=== PATIENT | female | born 1990 | race Caucasian/White ===

== ENCOUNTER 2018-11-27 07:02 | Emergency (ER) | payer OTHER ==
[~2018-11-27] VITALS: Ht 157.5 cm; Wt 65.0 kg
[2018-11-27 07:03] VITALS: BP 131/58; PULSE 100; RESP 18; Ht 157.5 cm; Wt 65.0 kg
[2018-11-27] MEDS ORDERED: NAPR-985 PO (08:50)
[2018-11-27] MEDS ORDERED: ONDA4TAB14 PO (08:50)
[2018-11-27] MEDS ORDERED: HYDR-4011 PO (08:50)
--- NOTE | 2018-11-27 09:14 | ERD ---
ER Documentation Chief Complaint Chief Complaint lower abdominal cramping/ nausea started this morning HPI 28-year-old female presenting with lower abdominal pain. States she felt nauseous this morning. Denies any changes in urination or bowel movement. Denies fever. Has not taken medications for symptoms. In August 2018 patient had abdominal pain and had a CT. There is questionable findings about appendicitis but patient did not have surgical intervention. Medical history is depression anxiety. [facility] November 14, 2018. History denies. Surgical history denies ROS All systems reviewed and are negative except as per history of present illness. Medications Home Meds Active Scripts Naproxen* (Naprosyn*) 500 Mg Tablet, 500 MG PO BID PRN for PAIN AND/OR INFLAMMATION, #30 TAB Prov:CORINE AGUILLON PA-C 11/27/18 Ondansetron (Ondansetron Odt) 4 Mg Tab.rapdis, 4 MG PO Q6H PRN for NAUSEA AND/OR VOMITING, #10 TAB Prov:CORINE AGUILLON PA-C 11/27/18 Hydrocodone/Acetaminophen ([place] 5-325 Tablet) 1 Each Tablet, 1 TAB PO Q6H PRN for PAIN, #7 TAB Prov:CORINE AGUILLON PA-C 11/27/18 Allergies Allergies: Coded Allergies: Penicillins (Verified Allergy, Unknown, 11/27/18) PMhx/Soc Medical and Surgical Hx: pt denies Medical Hx, pt denies Surgical Hx Hx Alcohol Use: No Hx Substance Use: No Hx Tobacco Use: No FmHx Family History: No diabetes, No coronary disease, No other Physical Exam Vitals Vital Signs Date Temp Pulse Resp B/P (MAP) Pulse Ox O2 O2 Flow FiO2 Time Delivery Rate 11/27/18 98.0 100 18 131/58 95 07:03 (82) Physical Exam GENERAL: The patient is well-appearing, well-nourished, in no acute distress HEENT: Atraumatic. Conjunctivae are pink. Pupils equal, round, and reactive to light. There is no scleral icterus. Tympanic membranes clear bilaterally. Or opharynx clear. NECK: C-spine is soft and supple. There is no meningismus. There is no cervical lymphadenopathy. CHEST: Clear to auscultation bilaterally. There are no rales, wheezes or rhonchi. HEART: Regular rate and rhythm. No murmurs, clicks, rubs or gallops. ABDOMEN:Soft, nondistended. Good bowel sounds. No rebound or guarding. No gross peritonitis. No gross organomegaly or masses. Mild tenderness palpation over suprapubic region but not lateralized to the right or left lower quadrant. Result Diagram: 11/27/18 0748 11/27/18 0748 Results 24 hrs Laboratory Tests Test 11/27/18 07:48 11/27/18 07:50 White Blood Count 22.9 10^3/ul Red Blood Count 5.76 10^6/ul Hemoglobin 12.0 g/dl Hematocrit 36.2 % Mean Corpuscular Volume 62.8 fl Mean Corpuscular Hemoglobin 20.8 pg Mean Corpuscular Hemoglobin Concent 33.1 g/dl Red Cell Distribution Width 14.6 % Platelet Count 357 10^3/UL Mean Platelet Volume 11.3 fl Immature Granulocytes % 0.400 % Neutrophils % 86.3 % Lymphocytes % 7.3 % Monocytes % 5.0 % Eosinophils % 0.5 % Basophils % 0.5 % Nucleated Red Blood Cells % 0.0 /100WBC Immature Granulocytes # 0.100 10^3/ul Neutrophils # 19.8 10^3/ul Lymphocytes # 1.7 10^3/ul Monocytes # 1.1 10^3/ul Eosinophils # 0.1 10^3/ul Basophils # 0.1 10^3/ul Nucleated Red Blood Cells # 0.0 10^3/ul Urine Color YELLOW Urine Clarity SLIGHTLY CLOUDY Urine pH 5.0 Urine Specific [place] 1.023 Urine Ketones NEGATIVE mg/dL Urine Nitrite NEGATIVE mg/dL Urine Bilirubin NEGATIVE mg/dL Urine Urobilinogen NEGATIVE mg/dL Urine Leukocyte Esterase TRACE Tristen/ul Urine Microscopic RBC 9 /HPF Urine Microscopic WBC 4 /HPF Urine Squamous Epithelial Cells FEW /HPF Urine Bacteria FEW /HPF Urine Mucus FEW /HPF Urine Hemoglobin 1+ mg/dL Urine Glucose NEGATIVE mg/dL Urine Total Protein NEGATIVE mg/dl Sodium Level 139 mmol/L Potassium Level 3.8 mmol/L Chloride Level 101 mmol/L Carbon Dioxide Level 25 mmol/L Anion Gap 13 Blood Urea Nitrogen 12 mg/dl Creatinine 0.78 mg/dl Est Glomerular Filtrat Rate mL/min > 60 mL/min Glucose Level 98 mg/dl Calcium Level 9.5 mg/dl Total Bilirubin 0.4 mg/dl Direct Bilirubin 0.00 mg/dl Indirect Bilirubin 0.4 mg/dl Aspartate Amino Transf (AST/SGOT) 19 IU/L Alanine Aminotransferase (ALT/SGPT) 12 IU/L Alkaline Phosphatase 69 IU/L Total Protein 8.1 g/dl Albumin 4.6 g/dl Globulin 3.50 g/dl Albumin/Globulin Ratio 1.31 Lipase 74 U/L POC Beta HCG, Qualitative NEGATIVE Procedures/MDM DIAGNOSTIC IMAGING REPORT Patient: SARAI COBB : 1990 Age: 28 Sex: F MR #: [id number] DOS: 11/27/18 0729 Ordering MD: JENNIFER AGUILLON PA-C Location: [facility] Room/Bed: PROCEDURE: US Pelvis. CLINICAL INDICATION: Pelvic pain. TECHNIQUE: Sonographic evaluation of the pelvis was performed utilizing both transabdominal and transvaginal technique.Curved array transabdominal transducer technique as well as a high frequency endovaginal probe was utilized. Images were reviewed on the high-resolution PACS workstation. COMPARISON: No prior studies are available for comparison. FINDINGS: The uterus is normal in size, echogenicity, and morphology and measures 6.8 x 2.9 x 3.4 cm. The endometrium is normal measuring 4.5 mm. The right ovary measures 2.2 cm in length with a 1.5 cm cyst. The left ovary measures 2.4 cm in length. The ovaries are symmetric in size, echogenicity, flow, and morphology. . There are no adnexal masses. There is trace free fluid in the cul-de-sac of the pelvis.. IMPRESSION: 1. Unremarkable ultrasound of the pelvis. MDM: 28-year-old female presenting with abdominal pain and cramping. Patient states she had a long history of similar cramping. Patient does have an elevated white count however exam is non-concerning and I feel patient would benefit from a close follow-up in 8-12 hours. I discussed this extensively with patient and we decided since patient received a CT scan in August and exam is borderline the patient should return in 12 hours for abdominal recheck. She was told to return sooner if symptoms change or worsen. I have low suspicion for urinary tract infection or pyelonephritis patient's urine is within normal limits. I have low suspicion for choledocholithiasis, cholecystitis, cholangitis or pancreatitis. Patient did not have epigastric pain. I have low suspicion for urinary tract infection as patient's urine is within normal limits. She is discharged with strict ER precautions and recommended to return for close follow-up. All questions answered at discharge Departure Diagnosis: Primary Impression: Abdominal pain Condition: Stable Patient Instructions: Abdominal Pain Referrals: [facility] YOU HAVE RECEIVED A MEDICAL SCREENING EXAM AND THE RESULTS INDICATE THAT YOU DO NOT HAVE A CONDITION THAT REQUIRES URGENT TREATMENT IN THE EMERGENCY DEPARTMENT. FURTHER EVALUATION AND TREATMENT OF YOUR CONDITION CAN WAIT UNTIL YOU ARE SEEN IN YOUR DOCTORS OFFICE WITHIN THE NEXT 1-2 DAYS. IT IS YOUR RESPONSIBILITY TO MAKE AN APPOINTMENT FOR FOLOW-UP CARE. IF YOU HAVE A PRIMARY DOCTOR --you should call your primary doctor and schedule an appointment IF YOU DO NOT HAVE A PRIMARY DOCTOR YOU CAN CALL OUR PHYSICIAN REFERRAL HOTLINE AT IF YOU CAN NOT AFFORD TO SEE A PHYSICIAN YOU CAN CHOSE FROM THE FOLLOWING [facility] [address] [facility] [address] [facility] [address] [facility] [address] [facility] [address] [facility]. [facility]. [address] Additional Instructions: Call your primary care doctor TOMORROW for an appointment during the next 1-2 days.See the doctor sooner or return here if your condition worsens before your appointment time. CORINE AGUILLON PA-C Nov 27, 2018 09:14
== END 2018-11-27 09:13 | disposition home or self-care (01) ==
LOC: FTE 07:02
DX: R10.9 Unspecified abdominal pain (principal); R10.2 Pelvic and perineal pain
CPT/HCPCS: 36415; 76830; 76856; 80053; 81001; 81025; 83690; 85025; Z7502

== ENCOUNTER 2018-12-20 06:25 | Inpatient (IN) | payer OTHER ==
[~2018-12-20] VITALS: Ht 157.5 cm; Wt 66.2 kg
[2018-12-20] VITALS (20 sets, daily range): BP systolic 96–135; BP diastolic 29–75; PULSE 69–108; RESP 14–29; Ht 157.5 cm; Wt 66.2 kg
[~2018-12-20 06:25] MED LIST: HYDR-4011 PO; NAPR-985 PO; ONDA4TAB14 PO
[2018-12-20] MEDS ORDERED: KETOROLAC 30 MG INJ IV STA (06:47)
[2018-12-20] MEDS ORDERED: SOD CHLORIDE 0.9% 500 ML IV STA (06:47)
[2018-12-20] MEDS ORDERED: CEFAZOLIN 1 GM INJ ONE (07:00)
[2018-12-20] MEDS ORDERED: HYDROmorphONE 0.5 MG/0.5 ML SYG IV STA (08:37)
--- NOTE | 2018-12-20 08:44 | ERD ---
ER Documentation Chief Complaint Chief Complaint mid abdominal pain , nausea since 03:45 am HPI 28-year-old female presents the emergency department complaining of abdominal pain. Patient states that beginning at approximately 3:00 this morning she began having a nonspecific lower abdominal pain. She had nausea but no vomiting. She had no diarrhea. She reports no urinary or gynecologic symptoms. She currently reports the pain is a 10 out of 10. She had similar type episodes with no significant diagnosis reported. ROS All systems reviewed and are negative except as per history of present illness. Medications Home Meds Active Scripts Naproxen* (Naprosyn*) 500 Mg Tablet, 500 MG PO BID PRN for PAIN AND/OR INFLAMMATION, #30 TAB Prov:CORINE AGUILLON PA-C 11/27/18 Ondansetron (Ondansetron Odt) 4 Mg Tab.rapdis, 4 MG PO Q6H PRN for NAUSEA AND/OR VOMITING, #10 TAB Prov:CORINE AGUILLON PA-C 11/27/18 Hydrocodone/Acetaminophen ([place] 5-325 Tablet) 1 Each Tablet, 1 TAB PO Q6H PRN for PAIN, #7 TAB Prov:OCRINE AGUILLON PA-C 11/27/18 Allergies Allergies: Coded Allergies: Penicillins (Verified Allergy, Unknown, 11/27/18) PMhx/Soc Medical and Surgical Hx: pt denies Medical Hx, pt denies Surgical Hx Hx Alcohol Use: No Hx Substance Use: No Hx Tobacco Use: No Physical Exam Vitals Vital Signs Date Temp Pulse Resp B/P (MAP) Pulse Ox O2 O2 Flow FiO2 Time Delivery Rate 12/20/18 97.7 92 18 122/57 97 06:28 (78) Physical Exam GENERAL: The patient is well developed and appropriate for usual state of health in no apparent distress HEENT: Pupils equal, round, and reactive to light. EOMI. There is no scleral i cterus. NECK: C-spine is soft and supple, there is no meningismus. There is no cervical lymphadenopathy. LUNGS: Clear to auscultation bilaterally. There are no rales, wheezes or rhonchi. HEART: Regular rate and rhythm, no murmurs, clicks, rubs or gallops. ABDOMEN: Soft, nondistended. Mild lower quadrant tenderness bilaterally. No rebound or guarding. No CVA tenderness. EXTREMITIES: There is no peripheral cyanosis or edema. No focal swelling or erythema. NEURO: The patient moves all four extremities with 5/5 strength. Cranial nerves II - XII are intact. Normal gait. Alert and oriented SKIN: There is no apparent rash or petechiae. HEME/LYMPHATIC: There is no evidence of excessive bruising or lymphedema. PSYCHIATRIC: The patient does not appear anxious or depressed. Result Diagram: 12/20/18 0659 12/20/18 0659 Results 24 hrs Laboratory Tests Test 12/20/18 06:59 12/20/18 07:31 White Blood Count 20.3 10^3/ul Red Blood Count 5.53 10^6/ul Hemoglobin 11.5 g/dl Hematocrit 35.2 % Mean Corpuscular Volume 63.7 fl Mean Corpuscular Hemoglobin 20.8 pg Mean Corpuscular Hemoglobin Concent 32.7 g/dl Red Cell Distribution Width 14.3 % Platelet Count 378 10^3/UL Mean Platelet Volume 11.2 fl Immature Granulocytes % 0.400 % Neutrophils % 85.4 % Lymphocytes % 9.4 % Monocytes % 3.8 % Eosinophils % 0.4 % Basophils % 0.6 % Nucleated Red Blood Cells % 0.0 /100WBC Immature Granulocytes # 0.090 10^3/ul Neutrophils # 17.3 10^3/ul Lymphocytes # 1.9 10^3/ul Monocytes # 0.8 10^3/ul Eosinophils # 0.1 10^3/ul Basophils # 0.1 10^3/ul Nucleated Red Blood Cells # 0.0 10^3/ul Urine Color YELLOW Urine Clarity SLIGHTLY CLOUDY Urine pH 6.0 Urine Specific [place] 1.020 Urine Ketones NEGATIVE mg/dL Urine Nitrite NEGATIVE mg/dL Urine Bilirubin NEGATIVE mg/dL Urine Urobilinogen NEGATIVE mg/dL Urine Leukocyte Esterase TRACE Tristen/ul Urine Microscopic RBC 4 /HPF Urine Microscopic WBC 2 /HPF Urine Squamous Epithelial Cells FEW /HPF Urine Mucus FEW /HPF Urine Hemoglobin 1+ mg/dL Urine Glucose NEGATIVE mg/dL Urine Total Protein NEGATIVE mg/dl Sodium Level 141 mmol/L Potassium Level 4.4 mmol/L Chloride Level 106 mmol/L Carbon Dioxide Level 26 mmol/L Anion Gap 9 Blood Urea Nitrogen 12 mg/dl Creatinine 0.74 mg/dl Est Glomerular Filtrat Rate mL/min > 60 mL/min Glucose Level 123 mg/dl Calcium Level 8.8 mg/dl Total Bilirubin 0.3 mg/dl Direct Bilirubin 0.00 mg/dl Indirect Bilirubin 0.3 mg/dl Aspartate Amino Transf (AST/SGOT) 25 IU/L Alanine Aminotransferase (ALT/SGPT) 15 IU/L Alkaline Phosphatase 78 IU/L Total Protein 8.0 g/dl Albumin 4.5 g/dl Globulin 3.50 g/dl Albumin/Globulin Ratio 1.28 Lipase 59 U/L Serum HCG, Qualitative NEGATIVE POC Beta HCG, Qualitative NEGATIVE Current Medications Medications Dose Sig/[place] Start Time Status Last (Trade) Ordered Route PRN Stop Time Admin Dose Reason Admin Sodium 500 ml @ Q1H STAT 12/20/18 DC 12/20/18 Chloride 500 mls/hr IV 06:47 07:05 12/20/18 07:46 Ketorolac 30 mg ONCE STAT 12/20/18 DC 12/20/18 Tromethamine IV 06:47 07:39 (Toradol) 12/20/18 06:48 0.5 mg ONCE STAT 12/20/18 DC Hydromorphone IV 08:37 HCl 12/20/18 08:38 (Dilaudid) 150 ml @ ONCE ONCE 12/20/18 Levofloxacin/ 100 mls/hr IVPB 09:00 Dextrose 12/20/18 10:29 Procedures/MDM Patient was taken to a room, seen and evaluated. Comfort measures were initiated. Diagnostic tests were ordered and reviewed. RADIOLOGY: Reviewed with the radiologist CONSULTATION: Hospitalist was notified for admission. Dr. Aguilar was notified in surgical consultation REEVALUATION: Patient required ongoing pain medication as well as antibiotics and fluids. She remained without obvious peritoneal findings. MEDICAL DECISION MAKING: Patient presents with abdominal pain of uncertain etiology. Differential diagnosis considered includes appendicitis, diverticulitis, cholecystitis and other intra-abdominal medical and surgical concerns. I have reviewed the patients lab studies and imaging as well as multiple examinations of the abdomen. Initial diagnostic tests are concerning for appendicitis. Patient will be admitted for IV antibiotics, surgical consultation and fluids. Departure Diagnosis: Primary Impression: Appendicitis Condition: EVERARDO Davalos December 20, 2018 08:44
[2018-12-20] MEDS ORDERED: LEVOFLOXACIN 750MG/D5W (PMX) 150 ML IVPB ONE (09:00)
[2018-12-20] MEDS ORDERED: morphine 2 MG INJ IV PRN (10:00)
[2018-12-20] MEDS ORDERED: NACL 0.9% 3 ML SYG IV SCH (10:00)
[2018-12-20] MEDS ORDERED: ACETAMINOPHEN 325 MG TAB PO PRN ×2 (10:00→17:00)
[2018-12-20] MEDS ORDERED: ONDANSETRON 4 MG INJ IV PRN ×2 (10:00→17:30)
[2018-12-20] MEDS ORDERED: DOCUSATE SODIUM 100 MG CAP PO PRN (10:00)
--- NOTE | 2018-12-20 10:03 | HP ---
Date/Time of Note Date/Time of Note DATE: 12/20/18 TIME: 09:59 Assessment/Plan VTE Prophylaxis Pharmacological prophylaxis: NA/contraindicated Pharm contraindication: low risk/ambulating Lines/Catheters IV [facility] Saline Lock Assessment/Plan Hospital Course SUBJECTIVE: No acute distress. Currently no abdominal pain, diarrhea, nausea or any GI symptoms. OBJECTIVE: Vital signs-see below PHYSICAL EXAM: Constitutional: Adequately built,not in acute distress. HEENT: Head atraumatic and normocephalic. Eyes: Extraocular muscles intact. Anicteric sclerae. Pupils equal bilaterally, reactive to light. NECK: Supple without lymph node. CHEST: Clear and good breath sounds equally. No wheezing. No rhonchi. HEART: S1, S2. Regular rate and rhythm. ABDOMEN: +Tender periumbilical area. no rebound tenderness. Bowel sounds were present. EXTREMITIES: No cyanosis, clubbing or edema. NEUROLOGIC: Alert and oriented x3. No focal deficit. No sensory deficit. PSYCHOSOCIAL: No signs of depression. INTEGUMENTARY: No open wounds. ASSESSMENT AND PLAN: 28 yo F w/no significant pmh admitted w/ abd pain found to have acute appendicitis.. Acute appendicitis -Surgical eval -N.p.o., IV fluids, IV antimicrobial (Cipro/Flagyl in light of penicillin allergy), PRN antiemetics Microcytic anemia -Obtain iron panel and treat accordingly. DVT prophylaxis: SCDs Rest of the management depend on hospital course. Approximately 60 m spent on this history and physical. Patient was seen in collaboration with Dr. Doss. Result Diagram: 12/20/1859 12/20/18 0659 Results 24hrs Laboratory Tests Test 12/20/18 06:59 12/20/18 07:31 White Blood Count 20.3 H Red Blood Count 5.53 H Hemoglobin 11.5 L Hematocrit 35.2 L Mean Corpuscular Volume 63.7 L Mean Corpuscular Hemoglobin 20.8 L Mean Corpuscular Hemoglobin Concent 32.7 Red Cell Distribution Width 14.3 Platelet Count 378 Mean Platelet Volume 11.2 H Immature Granulocytes % 0.400 Neutrophils % 85.4 H Lymphocytes % 9.4 L Monocytes % 3.8 Eosinophils % 0.4 Basophils % 0.6 Nucleated Red Blood Cells % 0.0 Immature Granulocytes # 0.090 H Neutrophils # 17.3 H Lymphocytes # 1.9 Monocytes # 0.8 Eosinophils # 0.1 Basophils # 0.1 Nucleated Red Blood Cells # 0.0 Urine Color YELLOW Urine Clarity SLIGHTLY CLOUDY A Urine pH 6.0 Urine Specific [place] 1.020 Urine Ketones NEGATIVE Urine Nitrite NEGATIVE Urine Bilirubin NEGATIVE Urine Urobilinogen NEGATIVE Urine Leukocyte Esterase TRACE A Urine Microscopic RBC 4 Urine Microscopic WBC 2 Urine Squamous Epithelial Cells FEW Urine Mucus FEW A Urine Hemoglobin 1+ H Urine Glucose NEGATIVE Urine Total Protein NEGATIVE Sodium Level 141 Potassium Level 4.4 Chloride Level 106 Carbon Dioxide Level 26 Anion Gap 9 Blood Urea Nitrogen 12 Creatinine 0.74 Est Glomerular Filtrat Rate mL/min > 60 Glucose Level 123 Calcium Level 8.8 Total Bilirubin 0.3 Direct Bilirubin 0.00 Indirect Bilirubin 0.3 Aspartate Amino Transf (AST/SGOT) 25 Alanine Aminotransferase (ALT/SGPT) 15 Alkaline Phosphatase 78 Total Protein 8.0 Albumin 4.5 Globulin 3.50 H Albumin/Globulin Ratio 1.28 Lipase 59 Serum HCG, Qualitative NEGATIVE POC Beta HCG, Qualitative NEGATIVE HPI/ROS Admit Date/Time Admit Date/Time Hx of Present Illness 28-year-old female admitted with sudden onset of periumbilical abdominal pain associated with 2 episodes of loose stool with nausea started this morning at 4:00. Patient had similar episode earlier this year and was treated empirically with antimicrobials for possible early appendicitis. Patient denied fever, chills, vomiting, hematochezia, hematemesis, chest pain, palpitation, dizziness or other constitutional symptoms. In the emergency room, patient was noted with a white count 20,300, hemoglobin 11.5, hematocrit 35.2. Urine test negative. UA unremarkable. CAT scan of abdomen and pelvis showed appendicitis. Surgical consultation was called from the emergency room and patient was given a dose of Levaquin and Toradol/Dilaudid for pain control. ROS A 12 point review of system was assessed and is negative other than what is mentioned in HPI. PMH/Family/Social Past Medical History See HPI Medications Current Medications Levofloxacin/ Dextrose 150 ml @ 100 mls/hr ONCE ONCE IVPB Last administered on 12/20/18at 09:12; Admin Dose 100 MLS/HR; Start 12/20/18 at 09:00; Stop 9 at 10:29 Coded Allergies: Penicillins (Verified Allergy, Unknown, 11/27/18) Past Surgical History None Social History No history of alcohol, smoking or illicit drug use. Exam/Review of Systems Vital Signs Vitals Vital Signs Date Temp Pulse Resp B/P (MAP) Pulse Ox O2 O2 Flow FiO2 Time Delivery Rate 12/20/18 97.7 92 18 122/57 97 06:28 (78) CARRILLO SANDOVAL NP December 20, 2018 10:03
[2018-12-20] MEDS ORDERED: FLUO20CA38 PO (10:05)
[2018-12-20] MEDS ORDERED: NORG1TAB14 PO (10:05)
[2018-12-20] MEDS ORDERED: MULTI PO (10:06)
[2018-12-20] MEDS: SOD CHLORIDE 0.9% 1,000 ML IV SCH ×2 (11:02→18:59)
[2018-12-20] MEDS: metroNIDAZOLE 500 MG/NS (PMX) 100 ML IVPB SCH ×2 (14:03→21:05)
--- NOTE | 2018-12-20 14:58 | CONS ---
Assessment/Plan Assessment/Plan Hospital Course (Demo Recall) 1. Recurrent appendicitis: CT: dilated appendix with mild adjacent inflammation compatible with appendicitis -OR today -abx -npo -ivf 2. Abdominal pain: -as above -pain mgt 3. Leukocytosis: -as above 4. Hypochromic, microcytic anemia: No overt bleed noted -monitor and tx as needed -w/u per medical team/pcp 5. Abnormal UA: -frequent bladder emptying 6. Overweight: bmi 27 -diet and exercise optimization -encourage weight loss Thank you. Patient seen and examined in collaboration with Dr. Juan Aguilar. Consultation Date/Type/Reason Admit Date/Time Date of Consultation: December 20, 2018 Type of Consult surgical Reason for Consultation abdominal pain, appendicitis Requesting Provider: CRARILLO SANDOVAL NP Date/Time of Note DATE: 12/20/18 TIME: 14:38 Hx of Present Illness Dannielle Ruiz is a 28 yo woman with pmh appendicitis treated conservatively with antibiotic management initially in 2017, who presented to the ED with complaints of abdominal pain. Abdominal pain is predominantly periumbilical, similar to pain when she was diagnosed with appendicitis however intensified. Pain characteristic is cramping in nature. She denies associated symptoms, denies fevers, chills, congested cough, diarrhea, change in bowel or bladder habits, dysuria, vaginal discharge, trauma to the area, skin changes. Laboratory findings significant for leukocytosis. CT identifies dilated appendix with mild adjacent inflammation compatible with appendicitis. General surgery was asked to evaluate. 12 point review of systems was performed and is negative except for as stated in HPI. Past Medical History recurrent appendicitis Home Meds Reported Medications Multivitamins* (Theragran*) 1 Tab Tab, 1 TAB PO DAILY, TAB 12/20/18 Norgestimate-Ethinyl Estradiol (Sprintec 28 Day Tablet) 1 Each Tablet, 1 EACH PO DAILY, TAB 12/20/18 Fluoxetine Hcl* (Prozac*) 20 Mg Capsule, 20 MG PO DAILY, CAP 12/20/18 Discontinued Scripts Naproxen* (Naprosyn*) 500 Mg Tablet, 500 MG PO BID PRN for PAIN AND/OR INFLAMMATION, #30 TAB Prov:CORINE AGUILLON PA-C 11/27/18 Ondansetron (Ondansetron Odt) 4 Mg Tab.rapdis, 4 MG PO Q6H PRN for NAUSEA AND/OR VOMITING, #10 TAB Prov:CORINE AGUILLON PA-C 11/27/18 Hydrocodone/Acetaminophen ([place] 5-325 Tablet) 1 Each Tablet, 1 TAB PO Q6H PRN for PAIN, #7 TAB Prov:CORINE AGUILLON PA-C 11/27/18 Medications Current Medications Ciprofloxacin/ Dextrose 200 ml @ 200 mls/hr Q12 IVPB ; Start 12/21/18 at 09:00 Metronidazole 100 ml @ 100 mls/hr Q8 IVPB Last administered on 12/20/18at 14:03; Admin Dose 100 MLS/HR; Start 12/20/18 at 14:00 Sodium Chloride 1,000 ml @ 75 mls/hr [id number] IV Last administered on 12/20/18at 11:02; Admin Dose 75 MLS/HR; Start 12/20/18 at 09:56 IV Flush (NS 3 ml) 3 ml PER PROTOCOL IV ; Start 12/20/18 at 10:00 Ondansetron HCl (Zofran Inj) 4 mg Q6H PRN IV NAUSEA/VOMITING; Start 12/20/18 at 10:00 Acetaminophen (Tylenol Tab) 650 mg Q6H PRN PO .PAIN 1-3 OR TEMP; Start 12/20/18 at 10:00 Morphine Sulfate (morphine) 2 mg Q4H PRN IV .SEVERE PAIN 7-10; Start 12/20/18 at 10:00 Docusate Sodium (Colace) 100 mg Q12H PRN PO .CONSTIPATION; Start 12/20/18 at 10:00 Allergies: Coded Allergies: Penicillins (Verified Allergy, Unknown, 12/20/18) Past Surgical History Past Surgical Hx: no surgical history Family History Significant Family History: no pertinent family hx Social History Alcohol Use: none Smoking Status: Never smoker Drug Use: none Exam/Review of Systems Exam Vitals Vital Signs Date Temp Pulse Resp B/P (MAP) Pulse Ox O2 O2 Flow FiO2 Time Delivery Rate 12/20/18 98.6 100 16 118/71 99 Room Air 10:50 (87) Constitutional: alert, oriented, well developed Psych: anxiety (Minimal) Head: normocephalic, atraumatic Eyes: nl conjunctiva, EOMI, nl lids, nl sclera ENMT: nl external ears & nose, nl lips & teeth, mucosa pink and moist Neck: supple, non-tender; No jvd Respiratory: normal air movement; No congested cough Cardiovascular: regular rate and rhythm, nl pulses Gastrointestinal: soft, distended (minimal), tender (Minimal periumbilical,) Genitourinary - Female: nl external genitalia Musculoskeletal: nl extremities to inspection, nl gait and stance Extremities: normal pulses Neurological: nl mental status, nl speech, nl strength Skin: nl turgor; No rash or lesions Results Result Diagram: 12/20/18 0659 12/20/18 0659 Results 24hrs Laboratory Tests Test 12/20/18 06:59 12/20/18 07:31 White Blood Count 20.3 H Red Blood Count 5.53 H Hemoglobin 11.5 L Hematocrit 35.2 L Mean Corpuscular Volume 63.7 L Mean Corpuscular Hemoglobin 20.8 L Mean Corpuscular Hemoglobin Concent 32.7 Red Cell Distribution Width 14.3 Platelet Count 378 Mean Platelet Volume 11.2 H Immature Granulocytes % 0.400 Neutrophils % 85.4 H Lymphocytes % 9.4 L Monocytes % 3.8 Eosinophils % 0.4 Basophils % 0.6 Nucleated Red Blood Cells % 0.0 Immature Granulocytes # 0.090 H Neutrophils # 17.3 H Lymphocytes # 1.9 Monocytes # 0.8 Eosinophils # 0.1 Basophils # 0.1 Nucleated Red Blood Cells # 0.0 Urine Color YELLOW Urine Clarity SLIGHTLY CLOUDY A Urine pH 6.0 Urine Specific [place] 1.020 Urine Ketones NEGATIVE Urine Nitrite NEGATIVE Urine Bilirubin NEGATIVE Urine Urobilinogen NEGATIVE Urine Leukocyte Esterase TRACE A Urine Microscopic RBC 4 Urine Microscopic WBC 2 Urine Squamous Epithelial Cells FEW Urine Mucus FEW A Urine Hemoglobin 1+ H Urine Glucose NEGATIVE Urine Total Protein NEGATIVE Sodium Level 141 Potassium Level 4.4 Chloride Level 106 Carbon Dioxide Level 26 Anion Gap 9 Blood Urea Nitrogen 12 Creatinine 0.74 Est Glomerular Filtrat Rate mL/min > 60 Glucose Level 123 Calcium Level 8.8 Total Bilirubin 0.3 Direct Bilirubin 0.00 Indirect Bilirubin 0.3 Aspartate Amino Transf (AST/SGOT) 25 Alanine Aminotransferase (ALT/SGPT) 15 Alkaline Phosphatase 78 Total Protein 8.0 Albumin 4.5 Globulin 3.50 H Albumin/Globulin Ratio 1.28 Lipase 59 Serum HCG, Qualitative NEGATIVE POC Beta HCG, Qualitative NEGATIVE Medications Medication Current Medications Ciprofloxacin/ Dextrose 200 ml @ 200 mls/hr Q12 IVPB ; Start 12/21/18 at 09:00 Metronidazole 100 ml @ 100 mls/hr Q8 IVPB Last administered on 12/20/18at 14:03; Admin Dose 100 MLS/HR; Start 12/20/18 at 14:00 Sodium Chloride 1,000 ml @ 75 mls/hr [id number] IV Last administered on 12/20/18at 11:02; Admin Dose 75 MLS/HR; Start 12/20/18 at 09:56 IV Flush (NS 3 ml) 3 ml PER PROTOCOL IV ; Start 12/20/18 at 10:00 Ondansetron HCl (Zofran Inj) 4 mg Q6H PRN IV NAUSEA/VOMITING; Start 12/20/18 at 10:00 Acetaminophen (Tylenol Tab) 650 mg Q6H PRN PO .PAIN 1-3 OR TEMP; Start 12/20/18 at 10:00 Morphine Sulfate (morphine) 2 mg Q4H PRN IV .SEVERE PAIN 7-10; Start 12/20/18 at 10:00 Docusate Sodium (Colace) 100 mg Q12H PRN PO .CONSTIPATION; Start 12/20/18 at 10:00 TEO REED NP December 20, 2018 14:48
--- NOTE | 2018-12-20 15:22 | PREAC ---
Date/Time of Note Date/Time of Note DATE: 12/20/18 TIME: 15:21 Anesthesia Eval and Record Evaluation Time Pre-Procedure Interview DATE: 12/20/18 TIME: 15:21 Age 28 Sex female NPO: 8 hrs Preoperative diagnosis appendicitis Planned procedure laparoscopic appendectomy Past Medical History Past Medical History: Includes Psych: Depression, Anxiety Surgery & Anesthesia Issues No known issue Meds Anticoagulation: No Beta Scooby within 24 hr: No Reason Beta Scooby not given: Pt. not on B-Scooby Reported Medications Multivitamins* (Theragran*) 1 Tab Tab, 1 TAB PO DAILY, TAB 12/20/18 Norgestimate-Ethinyl Estradiol (Sprintec 28 Day Tablet) 1 Each Tablet, 1 EACH PO DAILY, TAB 12/20/18 Fluoxetine Hcl* (Prozac*) 20 Mg Capsule, 20 MG PO DAILY, CAP 12/20/18 Discontinued Scripts Naproxen* (Naprosyn*) 500 Mg Tablet, 500 MG PO BID PRN for PAIN AND/OR INFLAMMATION, #30 TAB Prov:CORINE AGUILLON PA-C 11/27/18 Ondansetron (Ondansetron Odt) 4 Mg Tab.rapdis, 4 MG PO Q6H PRN for NAUSEA AND/OR VOMITING, #10 TAB Prov:CORINE AGUILLON PA-C 11/27/18 Hydrocodone/Acetaminophen ([place] 5-325 Tablet) 1 Each Tablet, 1 TAB PO Q6H PRN for PAIN, #7 TAB Prov:CORINE AGUILLON PA-C 11/27/18 Current Medications Ciprofloxacin/ Dextrose 200 ml @ 200 mls/hr Q12 IVPB ; Start 12/21/18 at 09:00 Metronidazole 100 ml @ 100 mls/hr Q8 IVPB Last administered on 12/20/18at 14:03; Admin Dose 100 MLS/HR; Start 12/20/18 at 14:00 Sodium Chloride 1,000 ml @ 75 mls/hr [id number] IV Last administered on 12/20/18at 11:02; Admin Dose 75 MLS/HR; Start 12/20/18 at 09:56 IV Flush (NS 3 ml) 3 ml PER PROTOCOL IV ; Start 12/20/18 at 10:00 Ondansetron HCl (Zofran Inj) 4 mg Q6H PRN IV NAUSEA/VOMITING; Start 12/20/18 at 10:00 Acetaminophen (Tylenol Tab) 650 mg Q6H PRN PO .PAIN 1-3 OR TEMP; Start 12/20/18 at 10:00 Morphine Sulfate (morphine) 2 mg Q4H PRN IV .SEVERE PAIN 7-10; Start 12/20/18 at 10:00 Docusate Sodium (Colace) 100 mg Q12H PRN PO .CONSTIPATION; Start 12/20/18 at 10:00 Meds reviewed: Yes Allergies Coded Allergies: Penicillins (Verified Allergy, Unknown, 12/20/18) Allergies Reviewed: Yes Labs/Studies Labs Reviewed: Reviewed by anesthesiologist Result Diagram: 12/20/1859 12/20/18 0659 Laboratory Tests 12/20/18 06:59 test: Negative Pre-procedure Exam Last vitals Vital Signs Date Temp Pulse Resp B/P (MAP) Pulse Ox O2 O2 Flow FiO2 Time Delivery Rate 12/20/18 98.4 69 16 135/75 96 Room Air 14:30 (95) Airway: Adequate mouth opening, Adequate thyromental dist Mallampati: Mallampati I Teeth: Normal Lung: Normal Heart: Normal ASA Physical Status ASA physical status: 2 Emergency: E Planned Anesthetic General/MAC: ETT Planned Pain Management Parenteral pain med Pre-operative Attestations Prior to commencing anesthesia and surgery, the patient was re-evaluated, there was verification of: *The patient's identity *The results of appropriate recent lab work and preoperative vital signs *The above evaluation not changing prior to induction *Anesthetic plan, risk benefits, alternative and complications discussed with patient/family; questions answered; patient/family understands, accepts and wishes to proceed. ANABEL KEYES December 20, 2018 15:22
[2018-12-20] MEDS ORDERED: PROPOFOL 100 ML ONE (15:30)
[2018-12-20] MEDS ORDERED: BUPIVACAINE 0.25%/EPI (SDV) 30 ML INJ ONE (15:34)
[2018-12-20] MEDS ORDERED: ROCURONIUM 50 MG INJ ONE (15:34)
[2018-12-20] MEDS ORDERED: LIDOCAINE 2% (SDV) 5 ML INJ ONE (15:34)
[2018-12-20] MEDS ORDERED: LIDOCAINE 1% (MPF) 30 ML INJ ONE (15:34)
[2018-12-20] MEDS ORDERED: DEXAMETHASONE 4 MG/ML 5 ML INJ ONE (16:34)
[2018-12-20] MEDS ORDERED: ONDANSETRON 4 MG INJ ONE (16:34)
[2018-12-20] MEDS ORDERED: MIDAZOLAM 1 MG/ML 2 ML INJ ONE (16:38)
[2018-12-20] MEDS ORDERED: IBUPROFEN 800 MG TAB PO PRN (17:00)
[2018-12-20] MEDS ORDERED: HYDROmorphONE 0.5 MG/0.5 ML SYG IV PRN (17:00)
[2018-12-20] MEDS ORDERED: SUGAMMADEX SODIUM 200 MG/2 ML VIAL IV ONE (17:02)
--- NOTE | 2018-12-20 17:19 | PAC ---
Date/Time of Note Date/Time of Note DATE: 12/20/18 TIME: 17:19 Post-Anesthesia Notes Post-Anesthesia Note Last documented vital signs Vital Signs Date Temp Pulse Resp B/P (MAP) Pulse Ox O2 O2 Flow FiO2 Time Delivery Rate 12/20/18 98.4 69 16 135/75 96 Room Air 1719 (95) Activity: WNL Respiratory function: WNL Cardiovascular function: WNL Mental status: Baseline Pain reasonably controlled: Yes Hydration appropriate: Yes Nausea/Vomiting absent: Yes ANABEL KEYES December 20, 2018 17:19
[2018-12-20] MEDS ORDERED: hydrALAzine 20 MG INJ IV PRN (17:30)
[2018-12-20] MEDS ORDERED: MIDAZOLAM 1 MG/ML 2 ML INJ IV PRN (17:30)
[2018-12-20] MEDS ORDERED: LABETALOL HCL 20MG INJ IV PRN (17:30)
[2018-12-20] MEDS ORDERED: ALBUTEROL 0.083% (NEB) 2.5 MG/3 ML AMP HHN PRN (17:30)
[2018-12-20] MEDS ORDERED: EPHEDrine SULFATE 50 MG/5 ML SYG IV PRN (17:30)
[2018-12-20] MEDS ORDERED: DIPHENHYDRAMINE 50 MG INJ IV PRN (17:30)
[2018-12-20] MEDS ORDERED: MEPERIDINE 25 MG INJ IV PRN (17:30)
[2018-12-20] MEDS ORDERED: FENTAnyl 50 MCG/ML VIAL IV PRN ×2 (17:30)
[2018-12-20] MEDS ORDERED: KETOROLAC 30 MG INJ IV PRN (17:30)
[2018-12-20] MEDS ORDERED: METOCLOPRAMIDE 10 MG INJ IV PRN (17:30)
--- NOTE | 2018-12-20 17:35 | OPR ---
Date/Time of Note Date/Time of Note DATE: 12/20/18 TIME: 17:32 Operative Report Free Text/Dictation Preoperative Diagnosis 1. Acute appendicitis Postoperative Diagnosis 1. Acute appendicitis 2. Right lower quadrant adhesions of omentum and colon to the abdominal wall and lateral wall. Operation Performed 1. Laparoscopic appendectomy 2. [place], [id number] 3. Laparoscopic guided bilateral transversus abdominis plane block Surgeon: DEONDRE BARAHONA MD Anesthesia: general (Plus local plus regional) Anesthesiologist: Louis Clark MD Estimated Blood Loss: Less than 5 ml's Specimens: Appendix Tubes/Drains None Complications: None Pt Condition Post Procedure: stable Disposition: PACU Indications: Per consult note. Risks include but are not limited to bleeding, infection, abscess, seroma, leak, damage to intestines or any intra-abdominal/intrapelvic structures, hernia formation, chronic pain, need for re-operations or further surgeries, CA, stroke, PE, DVT, pneumonia, organ failures, or even . Procedure Note: Patient was brought into the operating room, placed supine on the operating table, SCDs were placed, left arm was tucked, all pressure points were well- padded, preoperative antibiotics administered, and after induction of anesthesia, patient was prepped and draped in usual sterile fashion, and timeout was performed. Incision was made supraumbilically and the Veress needle was safely place into the abdomen. After negative sip test, abdomen was insufflated to 15 mmHg with CO2. At this point Veress was removed and the 5 mm blunt trocar was placed into the abdomen. Laparoscopy was performed and no injuries were identified using a 5 mm 30 scope. Under direct visualization another 5 mm port was placed and left lower quadrant and 12 mm port and suprapubic region avoiding the bladder. All incision sites were injected with quarter percent Marcaine with 1% lidocaine with epi. Bilateral transversus abdominis plane block was performed under laparoscopic visualization to aid with pain control intra-and postoperatively. Patient was placed in Trendelenburg and right side up. The appendix was found to be minimally inflamed without evidence of perforation. The base was transected using [employer] DONTA white load automatic 35 mm stapler just on the cecum. The charity were fired fully. The mesoappendix was transected with another white load stapler. Hemostasis was fully obtained. The appendix was placed in an Endo Catch bag and removed through the suprapubic port site. That fascia was closed with Endo Close and 0 Vicryl in a [id number] manner avoiding the bladder. Ports and CO2 were removed under direct visualization, wounds were fully irrigated, and skin was closed in subcuticular fashion using 4-0 Monocryl. Dermabond was applied. All counts were correct and the end of the operation 2. Patient was extubated and transferred to recovery room in stable condition. DEONDRE BARAHONA MD December 20, 2018 17:34
[2018-12-20] MEDS ORDERED: KETOROLAC 30 MG INJ ONE (17:48)
[2018-12-20] MEDS: FENTAnyl 50 MCG/ML VIAL IV PRN ×4 (18:01→19:45)
[2018-12-20] MEDS: HYDROCODONE/APAP (5/325) TAB PO PRN (20:18)
[2018-12-21] MEDS: HYDROCODONE/APAP (5/325) TAB PO PRN ×2 (00:28→05:00)
[2018-12-21 02:00] VITALS: BP 120/85; PULSE 89; RESP 18
[2018-12-21] MEDS ORDERED: DIPHENHYDRAMINE 25 MG CAP PO PRN (04:30)
[2018-12-21] MEDS: metroNIDAZOLE 500 MG/NS (PMX) 100 ML IVPB SCH ×3 (05:00→22:57)
[2018-12-21 07:25] VITALS: BP 117/63; PULSE 82; RESP 16
--- NOTE | 2018-12-21 09:13 | PN ---
Date/Time of Note Date/Time of Note DATE: 12/21/18 TIME: 09:11 Assessment/Plan VTE Prophylaxis Risk score (from [facility])>0 risk: 3 SCD applied (from [facility]): Yes Pharmacological prophylaxis: heparin Lines/Catheters IV Catheter Type (from [facility]): Peripheral IV Assessment/Plan Problems: (1) Appendicitis Status: Acute Comment: Patient is now status post appendectomy but remains on antibiotics. Starting to take p.o. Discharge in line with recommendations from general surgery. Note she is having some issues with Sharon and transition this over to Percocet. Qualifiers: Appendicitis type: acute appendicitis Acute appendicitis type: with localized peritonitis Appendicitis gangrene presence: with gangrene Appendicitis perforation presence: without perforation Appendicitis abscess presence: without abscess Qualified Codes: K35.31 - Acute appendicitis with localized peritonitis and gangrene, without perforation Result Diagram: 12/21/18 0430 12/21/18 0430 Results 24hrs Laboratory Tests Test 12/21/18 04:30 White Blood Count 12.3 #H Red Blood Count 5.61 H Hemoglobin 11.6 L Hematocrit 35.2 L Mean Corpuscular Volume 62.7 L Mean Corpuscular Hemoglobin 20.7 L Mean Corpuscular Hemoglobin Concent 33.0 Red Cell Distribution Width 14.6 H Platelet Count 401 Mean Platelet Volume 11.9 H Immature Granulocytes % 0.600 H Neutrophils % 88.0 H Lymphocytes % 8.8 L Monocytes % 2.4 Eosinophils % 0.0 Basophils % 0.2 Nucleated Red Blood Cells % 0.0 Immature Granulocytes # 0.070 H Neutrophils # 10.9 H Lymphocytes # 1.1 Monocytes # 0.3 Eosinophils # 0.0 Basophils # 0.0 Nucleated Red Blood Cells # 0.0 Sodium Level 141 Potassium Level 4.2 Chloride Level 108 Carbon Dioxide Level 23 Anion Gap 10 Blood Urea Nitrogen 7 Creatinine 0.69 Est Glomerular Filtrat Rate mL/min > 60 Glucose Level 121 Calcium Level 9.0 Magnesium Level 1.9 Iron Level 44 Total Iron Binding Capacity 314 Percent Iron Saturation 14 L Total Bilirubin 0.4 Direct Bilirubin 0.00 Indirect Bilirubin 0.4 Aspartate Amino Transf (AST/SGOT) 23 Alanine Aminotransferase (ALT/SGPT) 20 Alkaline Phosphatase 82 Total Protein 8.0 Albumin 4.4 Globulin 3.60 H Albumin/Globulin Ratio 1.22 Subjective 24 Hr Interval Summary Free Text/Dictation Cheerful young woman in bed. She reports that her pain is better than when she did come into the hospital. Denies fevers chills or sweats. Constitutional: no complaints ENT: no complaints Respiratory: no complaints Cardiovascular: no complaints Gastrointestinal: pain (Markedly decreased right lower quadrant pain, eating breakfast) Genitourinary: no complaints Exam/Review of Systems Exam Vitals Vital Signs Date Temp Pulse Resp B/P (MAP) Pulse Ox O2 O2 Flow FiO2 Time Delivery Rate 12/21/18 97.9 82 16 117/63 100 Room Air 07:25 (81) Intake and Output 12/20/18 12/20/18 12/21/18 1515:00 23:00 07:00 IntakeIntake Total 150 ml 1800 ml 1500 ml OutputOutput Total 10 ml BalanceBalance 150 ml 1790 ml 1500 ml Constitutional: alert, oriented Neck: supple, non-tender Respiratory: clear to auscultation, normal air movement Cardiovascular: regular rate and rhythm, nl pulses Gastrointestinal: soft, nl liver, spleen, other (Right lower quadrant tenderness) Results Results 24hrs Laboratory Tests Test 12/21/18 04:30 White Blood Count 12.3 #H Red Blood Count 5.61 H Hemoglobin 11.6 L Hematocrit 35.2 L Mean Corpuscular Volume 62.7 L Mean Corpuscular Hemoglobin 20.7 L Mean Corpuscular Hemoglobin Concent 33.0 Red Cell Distribution Width 14.6 H Platelet Count 401 Mean Platelet Volume 11.9 H Immature Granulocytes % 0.600 H Neutrophils % 88.0 H Lymphocytes % 8.8 L Monocytes % 2.4 Eosinophils % 0.0 Basophils % 0.2 Nucleated Red Blood Cells % 0.0 Immature Granulocytes # 0.070 H Neutrophils # 10.9 H Lymphocytes # 1.1 Monocytes # 0.3 Eosinophils # 0.0 Basophils # 0.0 Nucleated Red Blood Cells # 0.0 Sodium Level 141 Potassium Level 4.2 Chloride Level 108 Carbon Dioxide Level 23 Anion Gap 10 Blood Urea Nitrogen 7 Creatinine 0.69 Est Glomerular Filtrat Rate mL/min > 60 Glucose Level 121 Calcium Level 9.0 Magnesium Level 1.9 Iron Level 44 Total Iron Binding Capacity 314 Percent Iron Saturation 14 L Total Bilirubin 0.4 Direct Bilirubin 0.00 Indirect Bilirubin 0.4 Aspartate Amino Transf (AST/SGOT) 23 Alanine Aminotransferase (ALT/SGPT) 20 Alkaline Phosphatase 82 Total Protein 8.0 Albumin 4.4 Globulin 3.60 H Albumin/Globulin Ratio 1.22 Medications Medication Current Medications Ciprofloxacin/ Dextrose 200 ml @ 200 mls/hr Q12 IVPB ; Start 12/21/18 at 09:00 Metronidazole 100 ml @ 100 mls/hr Q8 IVPB Last administered on 12/21/18at 05:00; Admin Dose 100 MLS/HR; Start 12/20/18 at 14:00 Sodium Chloride 1,000 ml @ 75 mls/hr [id number] IV Last administered on 12/20/18at 18:59; Admin Dose 75 MLS/HR; Start 12/20/18 at 09:56 IV Flush (NS 3 ml) 3 ml PER PROTOCOL IV ; Start 12/20/18 at 10:00 Ondansetron HCl (Zofran Inj) 4 mg Q6H PRN IV NAUSEA/VOMITING; Start 12/20/18 at 10:00 Acetaminophen (Tylenol Tab) 650 mg Q6H PRN PO .PAIN 1-3 OR TEMP; Start 12/20/18 at 10:00 Morphine Sulfate (morphine) 2 mg Q4H PRN IV .SEVERE PAIN 7-10; Start 12/20/18 at 10:00 Docusate Sodium (Colace) 100 mg Q12H PRN PO .CONSTIPATION; Start 12/20/18 at 10:00 Hydromorphone HCl (Dilaudid) 0.5 mg Q2H PRN IV Breakthrough PAIN; Start 12/20/18 at 17:00 Ibuprofen (Motrin) 800 mg TID PRN PO pain 4-6; Start 12/20/18 at 17:00 Acetaminophen (Tylenol Tab) 650 mg Q4H PRN PO MILD PAIN(1-3)OR ELEVATED TEMP; Start 12/20/18 at 17:00 Diphenhydramine HCl (Benadryl) 25 mg Q6H PRN PO ITCHING Last administered on 12/21/18at 05:00; Admin Dose 25 MG; Start 12/21/18 at 04:30; Stop 12/22/18 at 04:30 Oxycodone/ Acetaminophen (Percocet (5/ 325)) 1 tab Q4H PRN PO MODERATE PAIN LEVEL 4-6; Start 12/21/18 at 09:30 BRANNON KNOX MD December 21, 2018 09:13
[2018-12-21] MEDS ORDERED: DIPHENHYDRAMINE 25 MG CAP PO ONE (09:30)
[2018-12-21] MEDS: OXYCODONE/ACETAMINOPHEN (5/325) TAB PO PRN ×3 (09:42→18:09)
[2018-12-21] MEDS: SOD CHLORIDE 0.9% 1,000 ML IV SCH (09:42)
[2018-12-21] MEDS: CIPROFLOXACIN 400MG/D5W 200 ML IVPB SCH ×2 (09:49→21:49)
[2018-12-21 14:10] VITALS: BP 109/61; PULSE 90; RESP 18
--- NOTE | 2018-12-21 18:08 | PN ---
Date/Time of Note Date/Time of Note DATE: 12/21/18 TIME: 18:04 Assessment/Plan Lines/Catheters IV Catheter Type (from [facility]rs[facility]): Peripheral IV Assessment/Plan Chief Complaint/Hosp Course 1. Recurrent appendicitis s/p lap appy 12/20. s/p Abx. -diet -dc planning for tomorrow ok from surgical standpoint 2. Abdominal pain: improved -as above -pain mgt 3. Leukocytosis: improving -as above 4. Hypochromic, microcytic anemia: No overt bleed noted -monitor and tx as needed -w/u per medical team/pcp 5. Abnormal UA: -frequent bladder emptying 6. Overweight: bmi 27 -diet and exercise optimization -encourage weight loss Thank you, Subjective 24 Hr Interval Summary Pain improved. No fevers chills. No nausea vomiting. Tolerating diet. No chest pain or shortness of breath. No cough. No seizure. No blood per mouth or rectum. No dysuria. Bowel function. Labs noted. Exam/Review of Systems Vital Signs Vitals Vital Signs Date Temp Pulse Resp B/P (MAP) Pulse Ox O2 O2 Flow FiO2 Time Delivery Rate 12/22/18 97.8 87 18 107/62 97 Room Air 07:51 (77) Intake and Output 12/21/18 12/21/18 12/22/18 1515:00 23:00 07:00 IntakeIntake Total 1490 ml 965 ml 500 ml BalanceBalance 1490 ml 965 ml 500 ml Exam Free Text/Dictation Constitutional: alert, oriented, well developed Psych: NAD, pleasant Head: normocephalic, atraumatic Eyes: nl conjunctiva, EOMI, nl lids, nl sclera ENMT: nl external ears & nose, nl lips & teeth, mucosa pink and moist Neck: supple, non-tender; No jvd Respiratory: normal air movement; No congested cough Cardiovascular: regular rate and rhythm, nl pulses Gastrointestinal: soft, distended (minimal), min tender Genitourinary - Female: nl external genitalia Musculoskeletal: nl extremities to inspection, nl gait and stance Extremities: normal pulses Neurological: nl mental status, nl speech, nl strength Skin: nl turgor; No rash or lesions Results Result Diagram: 12/21/1842912/21/18 043 DEONDRE BARAHONA MD December 21, 2018 18:08
[2018-12-21 20:00] VITALS: BP 118/76; PULSE 106; RESP 18
[2018-12-22] MEDS: OXYCODONE/ACETAMINOPHEN (5/325) TAB PO PRN ×2 (00:55→11:18)
[2018-12-22 02:00] VITALS: BP 111/65; PULSE 76; RESP 18
[2018-12-22] MEDS: SOD CHLORIDE 0.9% 1,000 ML IV SCH (04:00)
[2018-12-22] MEDS: metroNIDAZOLE 500 MG/NS (PMX) 100 ML IVPB SCH (05:50)
[2018-12-22 07:51] VITALS: BP 107/62; PULSE 87; RESP 18
--- NOTE | 2018-12-22 08:02 | QN ---
Documentation Comment December 22, 2018 To whom it may concern: Dear Sari; Ms. Spicer found to [facility] was admitted to [facility] December 20, 2018 with acute appendicitis. She underwent laparoscopic appendectomy on the day of admission and has been recovering. She is being released from the hospital December 22 and will be temporarily incapacitated through December 27, 2018. Please martinez her all appropriate accommodations under the circumstances for work and/or school and/or educational purposes. Respectfully BRANNON Martel MD, MD December 22, 2018 08:02
--- NOTE | 2018-12-22 08:06 | PDOCDIS ---
Discharge Instructions DIAGNOSIS Discharge Diagnosis Acute appendicitis CONDITION [id number] Patient Condition: Hehto3b Fair HOME CARE INSTRUCTIONS: [id number] Diet Instructions: [id number] Regular ACTIVITY: [id number] Activity Restrictions: [id number] Slowly Increase Activity FOLLOW UP/APPOINTMENTS Follow-up Plan Dr. Juan Aguilar in the next week BRANNON KNOX MD December 22, 2018 08:06
--- NOTE | 2018-12-22 08:06 | DS ---
Date/Time of Note Date/Time of Note DATE: 12/22/18 TIME: 08:02 Discharge Summary Admission/Discharge Info Admit Date/Time December 20, 2018 at 08:45 Discharge Date/Time December 22, 2018 Discharge Diagnosis Acute appendicitis Patient Condition: Fair Consults General surgery-Dr. Deondre Aguilar Procedures Abdominal pelvic CT scan; laparoscopic appendectomy Operative Report Free Text/Dictation Preoperative Diagnosis 1. Acute appendicitis Postoperative Diagnosis 1. Acute appendicitis 2. Right lower quadrant adhesions of omentum and colon to the abdominal wall and lateral wall. Operation Performed 1. Laparoscopic appendectomy 2. [place] anesthetic [place], [address] 3. Laparoscopic guided bilateral transversus abdominis plane block Hx of Present Illness HPI 28-year-old female presents the emergency department complaining of abdominal pain. Patient states that beginning at approximately 3:00 this morning she began having a nonspecific lower abdominal pain. She had nausea but no vomiting. She had no diarrhea. She reports no urinary or gynecologic symptoms. She currently reports the pain is a 10 out of 10. She had similar type episodes with no sig nificant diagnosis reported. Hx of Present Illness 28-year-old female admitted with sudden onset of periumbilical abdominal pain associated with 2 episodes of loose stool with nausea started this morning at 4:00. Patient had similar episode earlier this year and was treated empirically with antimicrobials for possible early appendicitis. Patient denied fever, chills, vomiting, hematochezia, hematemesis, chest pain, palpitation, dizziness or other constitutional symptoms. In the emergency room, patient was noted with a white count 20,300, hemoglobin 11.5, hematocrit 35.2. Urine test negative. UA unremarkable. CAT scan of abdomen and pelvis showed appendicitis. Surgical consultation was called from the emergency room and patient was given a dose of Levaquin and Toradol/Dilaudid for pain control. Hx of Present Illness Dannielle Ruiz is a 28 yo woman with pmh appendicitis treated conservatively with antibiotic management initially in 2017, who presented to the ED with complaints of abdominal pain. Abdominal pain is predominantly periumbilical, similar to pain when she was diagnosed with appendicitis however intensified. Pain characteristic is cramping in nature. She denies associated symptoms, denies fevers, chills, congested cough, diarrhea, change in bowel or bladder habits, dysuria, vaginal discharge, trauma to the area, skin changes. Laboratory findings significant for leukocytosis. CT identifies dilated appendix with mild adjacent inflammation compatible with appendicitis. General surgery was asked to evaluate. 12 point review of systems was performed and is negative except for as stated in HPI. Hospital Course [place] young lady admitted with acute appendicitis. She underwent laparoscopic appendectomy safely and without incident. She is transition over to oral pain medication oral antibiotics which she will complete a one-week course of. She will follow-up with Dr. Aguilar in the next week. Please note that she was forced to miss some of her normal activities for work and school due to this hospitalization and has been given a letter to that effect. Home Meds Reported Medications Multivitamins* (Theragran*) 1 Tab Tab, 1 TAB PO DAILY, TAB 12/20/18 Norgestimate-Ethinyl Estradiol (Sprintec 28 Day Tablet) 1 Each Tablet, 1 EACH PO DAILY, TAB 12/20/18 Fluoxetine Hcl* (Prozac*) 20 Mg Capsule, 20 MG PO DAILY, CAP 12/20/18 Discontinued Scripts Naproxen* (Naprosyn*) 500 Mg Tablet, 500 MG PO BID PRN for PAIN AND/OR INFLAMMATION, #30 TAB Prov:CORINE AGUILLON PA-C 11/27/18 Ondansetron (Ondansetron Odt) 4 Mg Tab.rapdis, 4 MG PO Q6H PRN for NAUSEA AND/OR VOMITING, #10 TAB Prov:CORINE AGUILLON PA-C 11/27/18 Hydrocodone/Acetaminophen ([place] 5-325 Tablet) 1 Each Tablet, 1 TAB PO Q6H PRN for PAIN, #7 TAB Prov:CORINE AGUILLON PA-C 11/27/18 Follow-up Plan Dr. Deondre Aguilar in the next week Primary Care Provider Not On Staff Doctor Copies To: CC: DEONDRE AGUILAR MD ; BRANNON KNOX MD December 22, 2018 08:06
[2018-12-22] MEDS ORDERED: IBUP800T48 PO (08:08)
[2018-12-22] MEDS ORDERED: ACET325T33 PO (08:08)
[2018-12-22] MEDS ORDERED: OXYC-438 PO (08:08)
[2018-12-22] MEDS ORDERED: CIPR500T4 PO (08:08)
[2018-12-22] MEDS ORDERED: METR500T PO (08:08)
[2018-12-22] MEDS ORDERED: metroNIDAZOLE 500 MG TAB PO SCH (14:00)
[2018-12-22] MEDS ORDERED: CIPROFLOXACIN 500 MG TAB PO SCH (18:00)
--- NOTE | 2018-12-22 23:32 | PN ---
Date/Time of Note Date/Time of Note DATE: 12/22/18 TIME: 23:32 Assessment/Plan Lines/Catheters IV Catheter Type (from Nrsg): Peripheral IV Assessment/Plan Chief Complaint/Hosp Course 1. Recurrent appendicitis s/p lap appy 12/20. s/p Abx. -diet -dc planning ok from surgical standpoint 2. Abdominal pain: improved -as above -pain mgt 3. Leukocytosis: improving -as above 4. Hypochromic, microcytic anemia: No overt bleed noted -monitor and tx as needed -w/u per medical team/pcp 5. Abnormal UA: -frequent bladder emptying 6. Overweight: bmi 27 -diet and exercise optimization -encourage weight loss Thank you, Late entry Subjective 24 Hr Interval Summary Pain improved. No fevers chills. No nausea vomiting. Tolerating diet. No chest pain or shortness of breath. No cough. No seizure. No blood per mouth or rectum. No dysuria. Bowel function. Exam/Review of Systems Vital Signs Vitals Vital Signs Date Temp Pulse Resp B/P (MAP) Pulse Ox O2 O2 Flow FiO2 Time Delivery Rate 12/22/18 97.8 87 18 107/62 97 Room Air 07:51 (77) Intake and Output 12/21/18 12/21/18 12/22/18 1515:00 23:00 07:00 IntakeIntake Total 1490 ml 965 ml 500 ml BalanceBalance 1490 ml 965 ml 500 ml Exam Free Text/Dictation Constitutional: alert, oriented, well developed Psych: NAD, pleasant Head: normocephalic, atraumatic Eyes: nl conjunctiva, EOMI, nl lids, nl sclera ENMT: nl external ears & nose, nl lips & teeth, mucosa pink and moist Neck: supple, non-tender; No jvd Respiratory: normal air movement; No congested cough Cardiovascular: regular rate and rhythm, nl pulses Gastrointestinal: soft, distended (minimal), min tender Genitourinary - Female: nl external genitalia Musculoskeletal: nl extremities to inspection, nl gait and stance Extremities: normal pulses Neurological: nl mental status, nl speech, nl strength Skin: nl turgor; No rash or lesions Results Result Diagram: 12/21/1842912/21/18429 DEONDRE BARAHONA MD December 22, 2018 23:32
== END 2018-12-22 11:35 | disposition home or self-care (01) | DRG 343 ==
LOC: FTE 06:25 → PP2 08:45
PROVIDERS: ADMIT Internal Medicine; ATTEND Internal Medicine
PROC: 0DTJ4ZZ Resection of Appendix, Percutaneous Endoscopic Approach (ICD-10-PCS; principal; 2018-12-20 15:30)
DX: K35.80 Unspecified acute appendicitis (principal); K66.0 Peritoneal adhesions (postprocedural) (postinfection); D72.829 Elevated white blood cell count, unspecified; E66.3 Overweight; Z68.26 Body mass index [BMI] 26.0-26.9, adult
CPT/HCPCS: 36415; 74176; 80053; 81001; 81025; 83540; 83690; 83735; 84703; 85025; 88304; 96374; J0690; J0744; J1100; J1170; J1885; J1956; J2250; J2405; J3010; J7030; J7040

== ENCOUNTER 2019-04-08 16:34 | Emergency (ER) | payer SELFPAY ==
[~2019-04-08 16:34] MED LIST changes: +ACET325T33 PO; +CIPR500T4 PO; +FLUO20CA38 PO; -HYDR-4011 PO; +IBUP800T48 PO; +METR500T PO; +MULTI PO; -NAPR-985 PO; +NORG1TAB14 PO; -ONDA4TAB14 PO; +OXYC-438 PO
== END 2019-04-08 17:13 | disposition left against medical advice (07) ==
LOC: E/R 16:34
DX: Z53.21 Procedure and treatment not carried out due to patient leaving prior to being seen by health care provider (principal)